=== PATIENT | female | born 1940 | race Caucasian/White ===

== ENCOUNTER → 2023-12-22 08:08 | Outpatient (REF) | payer MEDICARE, OTHER, SELFPAY | LOC: WDC 08:08 | PROVIDERS: ATTENDING PHYSICIAN Physician Assistant | DX: Z12.31 Encounter for screening mammogram for malignant neoplasm of breast (principal) | CPT/HCPCS: 77063; 77067 ==

== ENCOUNTER → 2024-09-11 07:27 | Outpatient (REF) | payer MEDICARE, OTHER, SELFPAY | LOC: RAD 07:27 | PROVIDERS: ATTENDING PHYSICIAN Physician Assistant | DX: R10.31 Right lower quadrant pain (principal) | CPT/HCPCS: 74177; Q9967 ==

== ENCOUNTER 2025-02-03 08:52 | Inpatient (IN) | payer MEDICARE, OTHER, SELFPAY ==
[2025-02-03] VITALS (14 sets, daily range): BP systolic 102–124; BP diastolic 57–75; BMI 23.3
--- NOTE | 2025-02-03 06:32 | ED.MUSCINJ ---
HPI-Injury
General
Chief Complaint: Fall
Source: patient
Exam Limitations: none
Time Seen by Provider: 02/03/25 06:17
Nursing documentation reviewed up to this point in time: agreed with
History of Present Illness-Injury
Is this injury a work related problem?: No
Is pt an associate of [facility]/[place]?: No
Initial Injury comments:
/84 female right hip pain since fall stool last evening, trouble ambulating since no head strike no neck pain no blood thinners
Past History
Past History
ED Past Medical History: Other (osteoporosis)
ED Past Surgical History: Gynecological
Social History
Tobacco: Non-smoker
Alcohol: None
Drug: None
Personal:
Living: with family
Employment: Retired
Review of Systems
Review of Systems
All Other Systems: Not applicable
ABD/GI: Reports no symptoms
: Reports no symptoms
Musculoskeletal: Reports joint pain
Phy Exam
Physical Exam
Physical Exam:
Physical Exam
General: Elderly female looks uncomfortable due to pain no overt signs of head or neck trauma
Neck: No tongue bite
Heart: s1/s2 regular rate and rhythm, no murmur. equal radial pulses.
Lungs: no acute respiratory distress. clear bilaterally
Abdomen: Nontender
Neuro: alert and oriented. no focal neurological deficits
Skin: no rash
Psychiatric: well kept. interactive and cooperative
Extremities: Pain with range of motion of the right hip internally rotated right leg
Injury Course
Orders/Labs/Results
Orders:
Orders
02/03/25 06:30
Morphine Sulfate 4 mg IV NOW STA
Ondansetron Injectable [Zofran] 4 mg IV NOW STA
CR Hip - RT w/wo Pel 2-3 Vw* Urgent
Comment:
Reason For Exam: right hip pain
Include a pelvis x-ray?: Yes
02/03/25 06:31
Electrocardiogram (*1) Urgent
Reason for Study: Other
Other Reason for Exam: trauma
Cardiac Monitoring- Treatment ONCE
EKG- Treatment ONCE
02/03/25 06:45
Type+Screen Urgent
Complete Blood Count/With Diff Urgent
Comprehensive Metabolic Panel Urgent
02/03/25 07:13
ORTHOPEDIC CONSULT Routine
Consulting Provider: Alex Carpenter
Was physician already notified: Yes
Abnormal Lab Results
02/03/25
06:45
MPV 10.6 H fL
(7.4-10.4)
Absolute Neuts (auto) 8.7 H 10^3/uL
(1.4-6.5)
Absolute Lymphs (auto) 0.8 L 10^3/uL
(1.2-3.4)
Absolute Monos (auto) 0.8 H 10^3/uL
(0.1-0.6)
Neutrophils % 83.7 H %
(42.2-75.2)
Lymphocytes % 7.7 L %
(20.5-51.1)
Sodium 134 L mmol/L
(135-145)
Carbon Dioxide 31 H mmol/L
(22-30)
Glucose 119 H mg/dl
(70-99)
02/03/25 06:45
02/03/25 06:45
MDM/Problems Addressed
Differential Diagnosis Includes:
Hip pain pelvic fracture contusion dislocation
MDM/Problems Addressed:
Right hip pain
*Radiology
Radiology exam reviewed: preliminary read by ED provider
*Pulse Oximetry
SaO2: 98
Oxygen Mode of Delivery: Room air
Patient hypoxic: no
*Critical Care Note
Total Time (30-74mins, 75-104mins- exclusive of procedures): Not Applicable
Update Note
Update Note:
7:15 AM x-ray noted message sent to hospitalist and orthopedist on-call patient updated
ED Attending Note
-
Portions of this chart may have been created with voice recognition software.� Occasional wrong word or��sound alike� substitutions may have occurred due to the inherent limitations of voice recognition software.
Discharge Plan
Departure
Patient Disposition: Admit
Date of Disposition: 02/03/25
Time of Disposition: 07:14
Admit to: Med/Surg
Presentation/result/management discussed w/ accepting MD/DO: Hospitalist
Patient with high blood pressure during this ER visit?: No
Condition: Fair
Discharge Problem:
Closed fracture of right hip
Prescriptions:
No Action
cholecalciferol (vitamin D3) [Vitamin D3] 1,000 UNIT tablet
1,000 unit PO DAILY
meclizine 25 MG tablet
25 mg PO Q8HPRN PRN (Reason: dizziness) Qty: 14 0RF
Referrals:
Christine Wheeler PA-C [Family Provider, Internal Medicine]
Interventions
Interventions:
*Risk Screen - Suicide Last Done: 02/03/25 06:29
*General Assessment Last Done: 02/03/25 06:35
*Neglect/Abuse Screening Last Done: 02/03/25 06:36
*ED COVID-19 Vaccine History Last Done: 02/03/25 07:11
*ED Influenza Vaccine History Last Done: 02/03/25 07:11
[facility] Risk Assessment Tool Last Done: 02/03/25 07:00
ED-Musculoskeletal Assessment Last Done: 02/03/25 06:59
ED- Neurological Assessment Last Done: 02/03/25 06:58
ED-Skin Assessment Last Done: 02/03/25 07:11
Discharge Date and Time
Print Language: UPPER SORBIAN
[2025-02-03] MEDS: ZOFRAN 4 MG IV (06:50)
[2025-02-03] MEDS: MORPHINE SULFATE 4 MG IV ×2 (06:50→08:40)
[2025-02-03 06:54] LABS: Hematocrit 37.1 % (37.0-47.0); Hemoglobin 12.6 g/dL (12.0-16.0); Mean Corp Hgb Conc. 34.0 g/dL (33.0-37.0); Mean Corpuscular Volume 88.1 fL (81.0-99.0); Nucleated Red Blood Cells % 0 %; Platelet Count 149 10^3/uL (130-400); Red Cell Dist. Width 14.0 % (11.5-14.5)
[2025-02-03 07:08] LABS: ALT (SGPT) 26 U/L (0-35); AST (SGOT) 32 U/L (14-36); Albumin 4.3 g/dl (3.5-5.0); Alkaline Phosphatase 78 U/L (38-126); Blood Urea Nitrogen 16 mg/dl (7-17); Calcium 9.3 mg/dl (8.4-10.2); Carbon Dioxide 31 mmol/L (22-30); Chloride 100 mmol/L (98-107); Estimated Creatinine Clearance 45 ml/min; Glucose 119 mg/dl (70-99); Potassium 3.5 mmol/L (3.5-5.1); Sodium 134 mmol/L (135-145); Total Protein 6.6 g/dl (6.3-8.2); eGFR > 60.00
[2025-02-03] MEDS: NSS 1000 IV ×2 (07:39→10:29)
--- NOTE | 2025-02-03 07:46 | HPS.HSE ---
Family Physician
-
Family Physician: Christine Wheeler
Chief Complaint
-
Right hip pain
History of Present Illness
84-year-old female sustained a fall around 5 PM yesterday afternoon landing on her back. Subsequently felt right hip pain and unable to get up.
Denies head trauma, loss of consciousness. Lives at home with .
Medical History
Past Medical History
Past Medical History: Reports Other
Additional Past Medical History:
Osteoporosis
Hypothyroidism
Vertigo
Glaucoma
Hyperlipidemia
Cataracts
PACs
Past Surgical History: Reports Gynocological
Social History
Tobacco: Non-smoker
Alcohol: None
Drug: None
Personal:
Living: With Family
Employment: Not Employed
Family History
Family History: Not pertinent
Allergies / Home Medications
Allergies reflects when Allergies were last updated in [employer].
Home Medications with original date entered in [employer]
Allergy/Medication List:
Allergies
Allergy/AdvReac Type Severity Reaction Status Date / Time
erythromycin base Allergy Unknown Verified 06/28/12 09:14
(Erythromycin Base)
Penicillins Allergy Unknown Verified 06/28/12 09:14
sulfamethoxazole (From Allergy Unknown Verified 06/28/12 09:14
Bactrim)
trimethoprim (From Bactrim) Allergy Unknown Verified 06/28/12 09:14
Home Medications
cholecalciferol (vitamin D3) 25 mcg (1,000 unit) tablet (Vitamin D3) 1,000 unit PO DAILY 06/28/12
meclizine 25 mg tablet 25 mg PO Q8HPRN PRN dizziness #14 tabs 06/28/12
Review of Systems
-
History Source: Patient
A 12 point ROS was completed and negative except as noted: Yes
Musculoskeletal: Reports Joint Pain (Right hip)
Physical Exam
Vital Signs
Vital Signs
Temp Pulse Resp BP Pulse Ox
98 F 83 13 114/69 98
02/03/25 06:29 02/03/25 06:29 02/03/25 06:29 02/03/25 06:29 02/03/25 06:35
Physical Exam
General: Well Developed, Well Nourished, No Apparent Distress and Comfortable
HEENT: NormoCephalic, Anicteric and Moist mucous membranes
Respiratory: Clear
Cardiac: S1/S2 and Regular Rhythm
Breast: Deferred by me
GI: Soft, Non Tender and Non Distended
Genito-urinary: Deferred by me
Musculoskeletal: No Clubbing, No Cyanosis and No Edema
Skin: Warm and Dry
Neuro: AO x 3
Hematologic/Lymphatic: No Lymphadenopathy
Psych: Calm
Laboratory Results
-
02/03/25 06:45
02/03/25 06:45
Laboratory Results
Total Bilirubin 1.2 mg/dl (0.2-1.3) 02/03/25 06:45
AST 32 U/L (14-36) 02/03/25 06:45
ALT 26 U/L (0-35) 02/03/25 06:45
Alkaline Phosphatase 78 U/L (38-126) 02/03/25 06:45
Impression/Plan
-
Acute traumatic right hip fracture -due to fall and underlying osteoporosis. Admit to MedSurg. Consult orthopedics. Keep NPO. Check preoperative EKG. Suspect she will be at acceptable risk for orthopedic surgery.
Continue analgesics.
Hyponatremia -134. Likely due to hypovolemia. Continue IV fluids.
Hypothyroidism -continue levothyroxine. Check TSH.
Full code
--- NOTE | 2025-02-03 08:00 | CON.ORTHO ---
Consultation
-
Date/Time Consultation Requested: Feb 19
Date/Time Consultation Performed: Feb 19
Requesting Provider: Rico
Performing Provider: Maximo Carpenter
Reason for Consultation: RIGHT hip fracture
Consultation - Orthopedics
History
History of Present Illness:
84-year-old female sustained a fall around 1700 yesterday afternoon landing on her back. Subsequently felt right hip pain and unable to get up. Denies previous issues with the right hip. No prodrome, LOC, or headstrike. She is quite hard of
hearing. Lives at home with spouse. Transported via EMS. Given xray findings in the ED we have been requested in consult for the consideration of surgical fixation
Past Medical History:
Osteoporosis
Hypothyroidism
Vertigo
Glaucoma
Hyperlipidemia
Cataracts
PACs
Past Surgical History:
Gynecological
Social History:
Tobacco: Non-smoker
Alcohol: None
Drug: None
Personal:
Living: With Family
Employment: Not Employed
Family History:
Not pertinent
ROS:
12 point negative except those mentioned in the HPI
Allergies / Home Medications
Allergy/AdvReac Type Severity Reaction Status Date / Time
erythromycin base Allergy Unknown Verified 06/28/12 09:14
(Erythromycin Base)
Penicillins Allergy Unknown Verified 06/28/12 09:14
sulfamethoxazole (From Allergy Unknown Verified 06/28/12 09:14
Bactrim)
trimethoprim (From Bactrim) Allergy Unknown Verified 06/28/12 09:14
�Medication �Instructions �Recorded
cholecalciferol (vitamin D3) 25 1,000 unit PO DAILY 06/28/12
mcg (1,000 unit) tablet (Vitamin
D3)
meclizine 25 mg tablet 25 mg PO Q8HPRN PRN dizziness #14 06/28/12
tabs
Vital Signs / Lab Results
Temp Pulse Resp BP Pulse Ox
98 F 83 13 114/69 98
02/03/25 06:29 02/03/25 06:29 02/03/25 06:29 02/03/25 06:29 02/03/25 06:35
02/03/25 06:45
02/03/25 06:45
Assessment / Plan
PE: Afeb. Hgb 12.6. Right hip skin intact. RLE short and ER. Generalized pain to palpation about the right hip. + logroll RLE. Deferred ROM due to known fracture. Calf soft, nontender. DNVI RLE
Xrays: RIGHT femoral neck fracture
Impression: EMILY
Plan: At length bedside discussion with the patient yields her understanding to the nature of her right hip fracture. Operative and nonoperative management were discussed including the RBAs of each. After excepting all the proposed risks of
proceeding with surgery she has elected this option. Assuming medical clearance, tentative plan for the OR will be a bit later today for a RIGHT hip hemiarthroplasty under the direction of either Dr. Carpenter or Dr. Mathews. if the OR cannot accommodate
today potential surgery might be planned tomorrow via Dr. Matute. She last ate yesterday at 1700. we briefly discussed the postop and rehab course as well and appreciate, in advance, CM assistance with disposition. she will remain NPO at bedrest.
Surgical and blood consents have been signed and left at the OR desk. Operative site has been marked as the RIGHT hip. T&S completed. ABX and irrigation products OCTOR. Ortho will follow.
[2025-02-03 08:28] LABS: Magnesium 2.1 mg/dl (1.6-2.3)
[2025-02-03] MEDS: KCL 160 MEQ IV (08:34)
[2025-02-03 09:40] LABS: TSH 1.09 uIU/ml (0.47-4.68)
[2025-02-03] MEDS: HEPARIN 5000 UNITS SC ×2 (10:27→20:02)
--- NOTE | 2025-02-03 13:22 | EDCM ---
Reviewed chart and met with pt bedside in ED. Lives with in 2 [address], 5 [address].
Independent in ADLs, personal care and ambulation at baseline, no assistive devices. No longer drives.
Confirms prescription coverage.
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
PCP: Christine Wheeler
Pharmacy: [facility]
Discharge disposition pending ongoing medical evaluation and surgery, CM will continue to follow for all discharge planning needs.
[2025-02-03] MEDS: DILAUDID 0.25 MG IV (16:37)
--- NOTE | 2025-02-03 18:08 | PTCARENOTE ---
1715 Pt arrived in bed from PACU. AXOX3. VSS. IVF infusing. 2L O2. Primaseal dressing C/D/I. Bed locked and in lowest position. call wilkinson with in reach.
[2025-02-03] MEDS: COLACE 100 MG PO (20:02)
[2025-02-03] MEDS: ANCEF 5 IV (21:29)
[2025-02-04] VITALS (8 sets, daily range): BP systolic 82–116; BP diastolic 49–70; PULSE 87–93
[2025-02-04] MEDS: SYNTHROID 25 MCG PO (05:49)
[2025-02-04] MEDS: ANCEF 5 IV (05:49)
--- NOTE | 2025-02-04 07:36 | W.PN.ORTHO ---
Today's Communication / Plan
-
PT/OT
Weightbearing as tolerated with walker
Posterior hip precautions
Mechanical devices/aspirin for DVT prophylaxis
Follow-up with orthopedics 1 month postop
Orthopedics will continue to follow
Assessment
.
Distal Motor Intact: Yes
Dressing:
Clean, dry and intact.
Plan
.
Surgery / Date: R hip hemiarthroplasty 02/04 Ritting
DVT Prophylaxis: Aspirin
Activity:
Out of bed.
PT/OT
Discharge Plan: SNF
Subjective
.
.:
Patient resting comfortably.
Vital Signs and Labs
.
Vital Signs and Labs:
Temp Pulse Resp BP Pulse Ox
97.6 F 77 18 116/67 95
02/04/25 03:00 02/04/25 03:00 02/04/25 03:00 02/04/25 03:00 02/04/25 03:00
Non-invasive Hgb result: 10.2
[2025-02-04] MEDS: HEPARIN 5000 UNITS SC ×2 (07:46→19:53)
[2025-02-04] MEDS: COLACE 100 MG PO ×2 (07:46→19:53)
[2025-02-04] MEDS: TYLENOL 650 MG PO (07:48)
[2025-02-04 08:27] LABS: Hematocrit 34.8 % (37.0-47.0); Hemoglobin 11.5 g/dL (12.0-16.0); Mean Corp Hgb Conc. 33.0 g/dL (33.0-37.0); Mean Corpuscular Volume 89.9 fL (81.0-99.0); Nucleated Red Blood Cells % 0 %; Platelet Count 142 10^3/uL (130-400); Red Cell Dist. Width 14.1 % (11.5-14.5)
[2025-02-04 08:47] LABS: Blood Urea Nitrogen 14 mg/dl (7-17); Calcium 8.5 mg/dl (8.4-10.2); Carbon Dioxide 31 mmol/L (22-30); Chloride 102 mmol/L (98-107); Estimated Creatinine Clearance 45 ml/min; Glucose 98 mg/dl (70-99); Potassium 3.8 mmol/L (3.5-5.1); Sodium 133 mmol/L (135-145); eGFR > 60.00
[2025-02-04] MEDS: MIRALAX 17 GRAMS PO (10:31)
[2025-02-04] MEDS: ROXICODONE 5 MG PO (10:31)
--- NOTE | 2025-02-04 12:00 | W.PN.HOSP.TC ---
Today's Communication/Plan
-
Discharge planning
Assessment / Plan
Assessment / Plan
Gen-AAOx3, NAD
HEENT-NC, AT, anicteric, clear oral mm
Neck-supple
CV-reg, no M, +S1/S2
Lungs-clear B/L
Abd-soft, NT, ND
Ext-no edema
Musculoskeletal-no cyanosis, clubbing
Skin-warm and dry
Neuro-grossly non-focal
Psych-calm, cooperative
Acute traumatic right hip fracture -due to fall and underlying osteoporosis.
Stable postop right hip hemiarthroplasty, 02/03/2025.
Continue PT/OT
Continue analgesics. VTE prophylaxis.
Acute postop anemia -hemoglobin mildly reduced 11.5. Hemodynamically stable. Possibly due to acute blood loss anemia due to hip fracture. Monitor closely.
Hyponatremia - stable. Sodium could be low due to acute pain from hip fracture.
Hypothyroidism -continue levothyroxine. TSH 1.09.
Full code
Dispo -medically stable for discharge to SNF. Updated case management.
Anticipated Discharge: Within 24 hours
Subjective/Interval History
-
Date of Service: February 04, 2025
Patient seen and examined. Some hip pain with movement.
Objective Data
-
Labs:
Laboratory Results
02/04/25
07:52
WBC 13.1 H
Hgb 11.5 L
Hct 34.8 L
Plt Count 142
Sodium 133 L
Potassium 3.8
Chloride 102
Carbon Dioxide 31 H
BUN 14
Creatinine 0.7
Glucose 98
Calcium 8.5
Vital Signs:
Vital Signs
Temp Pulse Resp BP Pulse Ox
97.9 F 87 17 106/57 95
02/04/25 11:32 02/04/25 11:32 02/04/25 11:32 02/04/25 11:32 02/04/25 11:32
I&O
02/03/25 02/04/25 02/05/25
06:59 06:59 06:59
Intake Total 50 / 50
Output Total 50 / 50
Balance 0 / 0
Review of Systems
-
History Source: Patient
All other systems: Reviewed and negative
--- NOTE | 2025-02-04 12:29 | CM ---
Addendum entered by Emmanuelle Simspon 02/04/25 14:46:
Correction: CM spoke with spouse this morning, not the son.
Received TT that the spouse wants to speak with the CM. LM on spouse's cell phone. plan is to dc to snf today. Pt is eligible to apply for the [facility] waiver. Will wait to hear from spouse to discuss options.
Probable discharge for tomorrow
Original Note:
Spoke to the son and shared the PT rec on SNF. Son will be in later today and will look at the 5-star Medicare Compare document provided the CM. He wants to speak to his about this recommendation.
Plan: TBD. Possibly SNF
[2025-02-05] MEDS: SYNTHROID 25 MCG PO (06:00)
--- NOTE | 2025-02-05 07:15 | W.PN.ORTHO ---
Today's Communication / Plan
-
PT/OT
Weightbearing as tolerated with walker
Posterior hip precautions
Mechanical devices/aspirin for DVT prophylaxis
Skin clip removal 2 weeks postop
Follow-up with orthopedics 1 month postop
Orthopedics to sign off
Assessment
.
Distal Motor Intact: Yes
Dressing:
Clean, dry and intact.
Plan
.
Surgery / Date: R hip hemiarthroplasty 02/04 Ritting
DVT Prophylaxis: Aspirin
Activity:
Out of bed.
PT/OT
Discharge Plan: SNF
Subjective
.
.:
Patient resting comfortably.
Vital Signs and Labs
.
Vital Signs and Labs:
Temp Pulse Resp BP Pulse Ox
99.4 F 89 16 107/59 94
02/04/25 23:00 02/04/25 23:00 02/04/25 23:00 02/04/25 23:00 02/04/25 23:00
Non-invasive Hgb result: 10.2
[2025-02-05 07:31] LABS: Hematocrit 31.9 % (37.0-47.0); Hemoglobin 10.9 g/dL (12.0-16.0); Mean Corp Hgb Conc. 34.2 g/dL (33.0-37.0); Mean Corpuscular Volume 88.1 fL (81.0-99.0); Nucleated Red Blood Cells % 0 %; Platelet Count 133 10^3/uL (130-400); Red Cell Dist. Width 14.2 % (11.5-14.5)
[2025-02-05 07:35] VITALS: BP 114/68
[2025-02-05 07:58] LABS: Blood Urea Nitrogen 14 mg/dl (7-17); Calcium 8.3 mg/dl (8.4-10.2); Carbon Dioxide 27 mmol/L (22-30); Chloride 97 mmol/L (98-107); Estimated Creatinine Clearance 45 ml/min; Glucose 92 mg/dl (70-99); Potassium 3.6 mmol/L (3.5-5.1); Sodium 129 mmol/L (135-145); eGFR > 60.00
[2025-02-05] MEDS: VITAMIN D3 (cholecalciferol) 25 MCG PO (09:00)
[2025-02-05] MEDS: COLACE 100 MG PO (09:00)
[2025-02-05] MEDS: VITAMIN B-12 1000 MCG PO (09:00)
[2025-02-05] MEDS: HEPARIN 5000 UNITS SC (09:01)
[2025-02-05] MEDS: MIRALAX 17 GRAMS PO (09:01)
--- NOTE | 2025-02-05 10:54 | W.PN.HOSP.TC ---
Today's Communication/Plan
-
Check urine studies
Serum osmolarity
Discharge planning
Assessment / Plan
Assessment / Plan
Gen-AAOx3, NAD
HEENT-NC, AT, anicteric, clear oral mm
Neck-supple
CV-reg, no M, +S1/S2
Lungs-clear B/L
Abd-soft, NT, ND
Ext-no edema
Musculoskeletal-no cyanosis, clubbing
Skin-warm and dry
Neuro-grossly non-focal
Psych-calm, cooperative
Acute traumatic right hip fracture -due to fall and underlying osteoporosis.
Stable postop right hip hemiarthroplasty, 02/03/2025.
Continue PT/OT
Continue analgesics. VTE prophylaxis.
Acute postop anemia -hemoglobin mildly reduced, 10.9. Hemodynamically stable. Possibly due to acute blood loss anemia due to hip fracture. Monitor closely.
Hyponatremia -sodium 129. Sodium could be low due to acute pain from hip fracture.
Will check serum osmolarity, urine osmolarity, urine sodium.
Hypothyroidism -continue levothyroxine. TSH 1.09.
Full code
Dispo -medically stable for discharge to SNF. Updated case management.
Updated at the bedside.
Anticipated Discharge: Within 24 hours
Subjective/Interval History
-
Date of Service: February 05, 2025
Patient seen and examined, no new complaints.
Objective Data
-
Labs:
Laboratory Results
02/05/25
06:42
WBC 9.4
Hgb 10.9 L
Hct 31.9 L
Plt Count 133
Sodium 129 L
Potassium 3.6
Chloride 97 L
Carbon Dioxide 27
BUN 14
Creatinine 0.7
Glucose 92
Calcium 8.3 L
Vital Signs:
Vital Signs
Temp Pulse Resp BP Pulse Ox
98.4 F 89 16 114/68 94
02/05/25 07:35 02/05/25 07:35 02/05/25 07:35 02/05/25 07:35 02/05/25 07:35
I&O
02/04/25 02/05/25 02/06/25
06:59 06:59 06:59
Intake Total 50 / 50 660 / 660
Output Total 50 / 50
Balance 0 / 0 660 / 660
Review of Systems
-
History Source: Patient
All other systems: Reviewed and negative
--- NOTE | 2025-02-05 12:09 | CM ---
Addendum entered by Darling Barnes 02/05/25 14:17:
ambulance pear picker 1600; facility and notified
Addendum entered by Darling Barnes 02/05/25 14:05:
Met with patient and at bedside; IMM benefit explained; form signed @ [id number]
Patient OOB in a Chair
Ambulance requested
Addendum entered by Darling Barnes 02/05/25 13:36:
Medicare Waiver approved; per Fara from [facility], approval being sent directly to facility
Plan: Discharge to [facility] [place] via ambulance today
Report #[phone]

Addendum entered by Darling Barnes 02/05/25 13:14:
[facility] accepted referral and has a bed available; she will discharge today pending Medicare Waiver approval
Original Note:
Per Attending, patient is stable for discharge
Met with patient and spouse at bedside; both are agreeable with discharge to SNF; made aware that patient is eligible for Medicare Waiver Program
Referrals sent to facilities within [facility] network
Plan: discharge to SNF pending bed availability
--- NOTE | 2025-02-05 13:34 | W.DS.TRANS ---
DC Summary - [employer]
-
Discharge Instructions:
Discharge Diagnosis/Procedures Right hip fracture, postop anemia, hyponatremia
Diet Other diet,Regular
Additional Diets 40 ounce daily fluid restriction
Activity As tolerated,With assistance
Driving Restrictions No driving
Bathing Restrictions None
Blood Work BMP, CBC next week
Instructions:
Stand-Alone Forms:
Changes to Home Medications: No
Discharge Medications:
DC Medications w/original date entered in [employer] [facility]
cholecalciferol (vitamin D3) 25 mcg (1,000 unit) tablet (Vitamin D3) 1,000 unit PO DAILY 06/28/12
cyanocobalamin (vitamin B-12) 1,000 mcg tablet 1,000 mcg PO DAILY 02/03/25
levothyroxine 25 mcg tablet (Synthroid) 25 mcg PO DAILY 02/03/25
acetaminophen 325 mg tablet 650 mg (2 x 325 mg) PO Q6HPRN PRN mild pain/ fever>100.5F #0 tabs 02/05/25
aspirin 325 mg tablet 325 mg PO DAILY #30 tabs 02/05/25
docusate sodium 100 mg capsule 100 mg PO BID #0 caps 02/05/25
polyethylene glycol 3350 17 gram oral powder packet 17 g PO DAILY #0 ea 02/05/25
Home Medication Changes
Pending Results: No
[2025-02-05] MEDS: TYLENOL 650 MG PO (15:13)
[2025-02-05 15:20] VITALS: BP 94/50
== END 2025-02-05 16:36 | DRG 522 ==
LOC: 2 SOUTH 08:52
PROVIDERS: Orthopaedic Surgery Hand Surgery; ADMITTING PHYSICIAN Hospitalist; CONSULT PHYSICIAN Orthopaedic Surgery; EMERGENCY PHYSICIAN Emergency Medicine; FAMILY PHYSICIAN Physician Assistant
PROC: 0SRR0JA Replacement of Right Hip Joint, Femoral Surface with Synthetic Substitute, Uncemented, Open Approach (ICD-10-PCS; 2025-02-03)
DX: M84.451A Pathological fracture, right femur, initial encounter for fracture (principal); E87.1 Hypo-osmolality and hyponatremia; D62 Acute posthemorrhagic anemia; W19.XXXA Unspecified fall, initial encounter; E03.9 Hypothyroidism, unspecified; E78.5 Hyperlipidemia, unspecified; Z88.0 Allergy status to penicillin; H91.90 Unspecified hearing loss, unspecified ear
CPT/HCPCS: 73502; 80048; 80053; 83735; 83930; 83935; 84300; 84443; 85025; 86850; 86900; 86901; 93005; 96361; 96374; 96375; 96376; 97163; 97167; 97530; 99285; C1713; C1776